=== PATIENT | male | born 1960 | race Caucasian/White ===

== ENCOUNTER 2016-08-08 22:47 | Emergency (ER) | payer OTHER ==
[~2016-08-08 22:47] MED LIST: ANUSOL SUPP1 SUPP PR; ATENOLOL50 MG PO; BACTRIM DS TABL1 TA1 PO; BAYER CHEWABLE81 MG PO; CETAPHIL1 BAR EXT; CLEOCIN PO; COLACE PO; DICLOFENAC SODI50 MG PO; DIFLUCAN PO; HYDROXYZINE HCL25 M1 PO; KEFLEX PO; KEFLEX500 MG PO; LIDOCAINE TOP; LITHIUM CARBON300 M1 PO; LITHIUM CARBON600 MG PO; LORTAB 5/500 TA1 TA1 PO; METOPROLOL SUCC25 MG PO; MG217 PSORIASI107 GM TP; MOBIC15 MG PO; NEURONTIN PO; NEURONTIN600 MG PO; NICORETTE4 MG PO; NYSTATIN15 G1 TP; OXYCODON-ACETA1 EAC1 PO; OXYCODONE15 M1 PO; PEPCID AC20 MG PO; PERCOCET 5-3251 TAB PO; PERCOCET PO; PREDNISONE PO; PREDNISONE10 MG PO; PROCTOFOAM-HC10 GM MC; ROXICODONE5 M1 PO; SORIATANE25 M1 PO; SORIATANE25 M2 PO; THERA-GEL251 ML TP; TOPROL XL 50 MG50 MG PO; TOPROL XL PO; TOPROL XL50 MG PO; TRIAMCINOLONE AC1 GM EXT; TYLENOL #3 PO; VIREAD300 MG PO; XANAX0.5 M1 PO; ZANAFLEX4 M1 PO; ZANTAC PO; ZOLOFT50 MG PO
== END 2016-08-09 00:17 | disposition home or self-care (01) ==
LOC: CED 22:47
DX: L40.9 Psoriasis, unspecified (principal); Z76.5 Malingerer [conscious simulation]; F17.200 Nicotine dependence, unspecified, uncomplicated; B19.10 Unspecified viral hepatitis B without hepatic coma; Z88.6 Allergy status to analgesic agent; Z79.899 Other long term (current) drug therapy
CPT/HCPCS: 99283